=== PATIENT | female | born 1975 | race Caucasian/White ===

== ENCOUNTER 2017-04-24 01:09 | Emergency (ER) | payer OTHER ==
[2017-04-24] MEDS ORDERED: LORazepam 2 MG/ML INJ IM STA (01:34)
--- NOTE | 2017-04-24 01:34 | ED ---
General Adult HPI - General Source: patient, RN notes reviewed Mode of arrival: ambulatory Limitations: no limitations <Johnnie Adamson - Last Filed: 04/24/17 02:55> <Ji Granados - Last Filed: 04/24/17 12:43> - General Chief complaint: Alcohol Stated complaint: Mental Health Time Seen by Provider: 04/24/17 01:15 - History of Present Illness Initial comments: This is a 41-year-old female presents emergency Department intoxicated. Patient states she was doing methamphetamines today and drinking alcohol. Patient states she is suicidal friend states that patient has been having suicidal ideations all day. Patient denies any physical complaints today. Patient denies headache patient denies chest pain patient denies difficulty breathing or shortness of breath. Patient denies abdominal pain. Patient denies any recent injury or trauma. Patient denies taking any pills. Patient denies any heroin use. (Johnnie Adamson) - Related Data Home Medications Medication Instructions Recorded Confirmed No Known Home Medications [No 04/24/17 04/24/17 Known Home Medications] Allergies Allergy/AdvReac Type Severity Reaction Status Date / Time No Known Allergies Allergy Verified 04/24/17 10:31 Review of Systems ROS Other: All systems not noted in ROS Statement are negative. <Johnnie Adamson - Last Filed: 04/24/17 02:55> ROS Other: All systems not noted in ROS Statement are negative. <Ji Granados - Last Filed: 04/24/17 12:43> ROS Statement: Those systems with pertinent positive or pertinent negative responses have been documented in the HPI. Past Medical History Past Medical History: No Reported History History of Any Multi-Drug Resistant Organisms: MRSA Date of last positivie culture/infection: 2011 MDRO Source:: abdomen Past Surgical History: Section Additional Past Surgical History / Comment(s): 4 Past Anesthesia/Blood Transfusion Reactions: No Reported Reaction Past Psychological History: Anxiety, Depression Smoking Status: Current every day smoker Past Alcohol Use History: Daily, Heavy Past Drug Use History: Cocaine, Heroin, IV Drug Use, Marijuana, Methamphetamine , Opiates - Past Family History Father Family Medical History: Diabetes Mellitus, Hypertension Additional Family Medical History / Comment(s): Patient does not know any history on her father. She only states that he is "a piece of shit." Mother Family Medical History: CVA/TIA, Hypertension Additional Family Medical History / Comment(s): Mother has history of CVA Brother(s) Additional Family Medical History / Comment(s): Patient has 4 brothers. She has one sister that has some type of mental health problems. Patient has 4 children ages 22, 18, 17, 15. Patient states that she does not have custody of her children. <Johnnie Adamson - Last Filed: 04/24/17 02:55> General Exam Limitations: no limitations <Johnnie Adamson - Last Filed: 04/24/17 02:55> <Ji Granados - Last Filed: 04/24/17 12:43> - General Exam Comments Initial Comments: GENERAL: Patient is well-developed and well-nourished. Patient is nontoxic and well- hydrated and is in no acute distress.patient appears intoxicated ENT: Neck is soft and supple. No significant lymphadenopathy is noted. Oropharynx is clear. Moist mucous membranes. Neck has full range of motion without eliciting any pain. EYES: The sclera were anicteric and conjunctiva were pink and moist. Extraocular movements were intact and pupils were equal round and reactive to light. Eyelids were unremarkable. PULMONARY: Unlabored respirations. Good breath sounds bilaterally. No audible rales rhonchi or wheezing was noted. CARDIOVASCULAR: There is a regular rate and rhythm without any murmurs gallops or rubs. ABDOMEN: Soft and nontender with normal bowel sounds. SKIN: Skin is clear with no lesions or rashes and otherwise unremarkable. NEUROLOGIC: Patient is alert and oriented x3. Cranial nerves II through XII are grossly intact. Motor and sensory are also intact. Normal speech, volume and content. MUSCULOSKELETAL: Normal extremities with adequate strength and full range of motion. LYMPHATICS: No significant lymphadenopathy is noted PSYCHIATRIC: patient is upset and very tearful and states she is suicidal. (Johnnie Adamson) Vital Signs 04/24/17 04/24/17 04/24/17 01:15 07:19 10:07 Temperature 98.4 F 98 F Pulse Rate 100 78 102 H Respiratory 18 18 20 Rate Blood Pressure 141/81 100/60 O2 Sat by Pulse 97 98 Oximetry Medical Decision Making <Johnnie Adamson - Last Filed: 04/24/17 02:55> <Ji Granados - Last Filed: 04/24/17 12:43> - Medical Decision Making Dr. Aime jackson taking over the care of this patient at 7 AM (Johnnie Adamson) Patient was seen by mental health services who recommends discharge. Patient is set up for follow-up appointment with [facility] in the morning as well as they will contact patient later tonight. Patient reevaluated and denies suicidal ideation. Patient does contract for safety. (Ji Granados) - Lab Data Lab Results 04/24/17 Range/Units 02:00 Urine Opiates Screen Not Detected (NotDetected) Ur Oxycodone Screen Not Detected (NotDetected) Urine Methadone Screen Not Detected (NotDetected) Ur Propoxyphene Screen Not Detected (NotDetected) Ur Barbiturates Screen Not Detected (NotDetected) U Tricyclic Antidepress Not Detected (NotDetected) Ur Phencyclidine Scrn Not Detected (NotDetected) Ur Amphetamines Screen Detected H (NotDetected) U Methamphetamines Scrn Detected H (NotDetected) U Benzodiazepines Scrn Detected H (NotDetected) Urine Cocaine Screen Not Detected (NotDetected) U Marijuana (THC) Screen Detected H (NotDetected) Disposition <Johnnie Adamson - Last Filed: 04/24/17 02:55> Time of Disposition: 12:43 <Ji Granados - Last Filed: 04/24/17 12:43> Clinical Impression: Depression Disposition: HOME SELF-CARE Condition: Stable Instructions: Polysubstance Abuse (ED), Depression (ED), Suicide Prevention for Adults (ED) Additional Instructions: Discontinue alcohol and substance use. Return for increased depression, thoughts of harming your self, worsening symptoms or other concerns. Please follow-up with [facility] as directed. Referrals: Deanna Haskins MD [STAFF PHYSICIAN] - 1-2 days
[2017-04-24 02:21] LABS: Amphetamine Screen,Urine Detected (NotDetected); Barbiturate Screen,Urine Not Detected (NotDetected); Benzodiazepines Screen,Urine Detected (NotDetected); Cocaine Screen,Urine Not Detected (NotDetected); Methadone Screen, Urine Not Detected (NotDetected); Opiate Screen,Urine Not Detected (NotDetected); Oxycodone Screen, Urine Not Detected (NotDetected); Phencyclidine Screen,Urine Not Detected (NotDetected); Tricyclic Antidepressant,Urine Not Detected (NotDetected); Urn Cannabinoid Scrn Detected (NotDetected)
[2017-04-24 13:01] VITALS: BP 115/58; PULSE 62; RESP 18; TEMP 98
== END 2017-04-24 13:01 | disposition home or self-care (01) ==
LOC: EC 01:09
DX: F32.9 Major depressive disorder, single episode, unspecified (principal); F10.129 Alcohol abuse with intoxication, unspecified; R45.851 Suicidal ideations; F17.200 Nicotine dependence, unspecified, uncomplicated; Z86.14 Personal history of Methicillin resistant Staphylococcus aureus infection
CPT/HCPCS: 82075; 80306; 99284; 96372; J2060

== ENCOUNTER 2017-08-20 21:54 | Inpatient (IN) | payer MEDICAID, OTHER ==
[2017-08-20] MEDS ORDERED: SODIUM CHLORIDE 0.9% 1,000 ML IV ONE (22:26)
--- NOTE | 2017-08-20 22:29 | ED ---
General Adult HPI - General Chief complaint: Psychiatric Symptoms Stated complaint: mental health Time Seen by Provider: 08/20/17 21:56 Source: police, EMS, RN notes reviewed Mode of arrival: EMS Limitations: no limitations - History of Present Illness Initial comments: This is a 41-year-old female who comes into the emergency department intoxicated. She also overdosed on heroin and Narcan to bring her around. Patient then woke up and made statements that she was suicidal. Patient has no physical complaints however. Patient denies any headache patient denies chest pain difficulty breathing shortness of breath. Patient denies abdominal pain patient denies nausea vomiting diarrhea. Patient however does state that she is sexually active. Patient also states she has hepatitis C - Related Data Home Medications Medication Instructions Recorded Confirmed No Known Home Medications [No 04/24/17 04/24/17 Known Home Medications] Allergies Allergy/AdvReac Type Severity Reaction Status Date / Time No Known Allergies Allergy Verified 08/20/17 22:11 Review of Systems ROS Statement: Those systems with pertinent positive or pertinent negative responses have been documented in the HPI. ROS Other: All systems not noted in ROS Statement are negative. Past Medical History Past Medical History: No Reported History History of Any Multi-Drug Resistant Organisms: MRSA Date of last positivie culture/infection: 2011 MDRO Source:: abdomen Past Surgical History: Section Additional Past Surgical History / Comment(s): 4 Past Anesthesia/Blood Transfusion Reactions: No Reported Reaction Past Psychological History: Anxiety, Depression Smoking Status: Current every day smoker Past Alcohol Use History: Daily, Heavy Past Drug Use History: Cocaine, Heroin, IV Drug Use, Marijuana, Methamphetamine , Opiates - Past Family History Father Family Medical History: Diabetes Mellitus, Hypertension Additional Family Medical History / Comment(s): Patient does not know any history on her father. She only states that he is "a piece of shit." Mother Family Medical History: CVA/TIA, Hypertension Additional Family Medical History / Comment(s): Mother has history of CVA Brother(s) Additional Family Medical History / Comment(s): Patient has 4 brothers. She has one sister that has some type of mental health problems. Patient has 4 children ages 22, 18, 17, 15. Patient states that she does not have custody of her children. General Exam - General Exam Comments Initial Comments: GENERAL: Patient is well-developed and well-nourished. Patient is nontoxic and well- hydrated and is in no acute distress. ENT: Neck is soft and supple. No significant lymphadenopathy is noted. Oropharynx is clear. Moist mucous membranes. Neck has full range of motion without eliciting any pain. EYES: The sclera were anicteric and conjunctiva were pink and moist. Extraocular movements were intact and pupils were equal round and reactive to light. Eyelids were unremarkable. PULMONARY: Unlabored respirations. Good breath sounds bilaterally. No audible rales rhonchi or wheezing was noted. CARDIOVASCULAR: There is a regular rate and rhythm without any murmurs gallops or rubs. ABDOMEN: Soft and nontender with normal bowel sounds. No palpable organomegaly was noted. There is no palpable pulsatile mass. SKIN: Skin is clear with no lesions or rashes and otherwise unremarkable. NEUROLOGIC: Patient is alert and oriented x3. Cranial nerves II through XII are grossly intact. Motor and sensory are also intact. Normal speech, volume and content. Symmetrical smile. MUSCULOSKELETAL: Normal extremities with adequate strength and full range of motion. No lower extremity swelling or edema. No calf tenderness. LYMPHATICS: No significant lymphadenopathy is noted PSYCHIATRIC: Patient states she suicidal and appears very anxious which could be residual effects from her being given Narcan Limitations: no limitations Course Vital Signs 08/20/17 22:11 Temperature 97.6 F Pulse Rate 76 Respiratory 18 Rate Blood Pressure 126/85 O2 Sat by Pulse 97 Oximetry Medical Decision Making - Lab Data Result diagrams: 08/20/17 22:35 08/20/17 22:35 Lab Results 08/20/17 08/20/17 08/21/17 Range/Units 22:35 22:35 00:31 WBC 7.2 (3.8-10.6) k/uL RBC 4.59 (3.80-5.40) m/uL Hgb 14.2 (11.4-16.0) gm/dL Hct 43.5 (34.0-46.0) % MCV 94.8 (80.0-100.0) fL MCH 31.0 (25.0-35.0) pg MCHC 32.7 (31.0-37.0) g/dL RDW 13.3 (11.5-15.5) % Plt Count 254 (150-450) k/uL Neutrophils % 70 % Lymphocytes % 18 % Monocytes % 6 % Eosinophils % 2 % Basophils % 1 % Neutrophils # 5.1 (1.3-7.7) k/uL Lymphocytes # 1.3 (1.0-4.8) k/uL Monocytes # 0.5 (0-1.0) k/uL Eosinophils # 0.1 (0-0.7) k/uL Basophils # 0.0 (0-0.2) k/uL Sodium 149 H (137-145) mmol/L Potassium 4.1 (3.5-5.1) mmol/L Chloride 112 H (98-107) mmol/L Carbon Dioxide 24 (22-30) mmol/L Anion Gap 13 mmol/L BUN 12 (7-17) mg/dL Creatinine 0.70 (0.52-1.04) mg/dL Est GFR (CKD-EPI)AfAm >90 (>60 ml/min/1.73 sqM) Est GFR (CKD-EPI)NonAf >90 (>60 ml/min/1.73 sqM) Glucose 87 (74-99) mg/dL Calcium 8.6 (8.4-10.2) mg/dL Total Bilirubin 0.1 L (0.2-1.3) mg/dL AST 97 H (14-36) U/L ALT 95 H (9-52) U/L Alkaline Phosphatase 53 (38-126) U/L Total Protein 6.9 (6.3-8.2) g/dL Albumin 3.9 (3.5-5.0) g/dL Lipase 432 H (23-300) U/L Urine HCG, Qual (Not Detectd) Urine Opiates Screen Not Detected (NotDetected) Ur Oxycodone Screen Not Detected (NotDetected) Urine Methadone Screen Not Detected (NotDetected) Ur Propoxyphene Screen Not Detected (NotDetected) Ur Barbiturates Screen Not Detected (NotDetected) U Tricyclic Antidepress Not Detected (NotDetected) Ur Phencyclidine Scrn Not Detected (NotDetected) Ur Amphetamines Screen Detected H (NotDetected) U Methamphetamines Scrn Not Detected (NotDetected) U Benzodiazepines Scrn Not Detected (NotDetected) Urine Cocaine Screen Not Detected (NotDetected) U Marijuana (THC) Screen Detected H (NotDetected) 08/21/17 Range/Units 00:31 WBC (3.8-10.6) k/uL RBC (3.80-5.40) m/uL Hgb (11.4-16.0) gm/dL Hct (34.0-46.0) % MCV (80.0-100.0) fL MCH (25.0-35.0) pg MCHC (31.0-37.0) g/dL RDW (11.5-15.5) % Plt Count (150-450) k/uL Neutrophils % % Lymphocytes % % Monocytes % % Eosinophils % % Basophils % % Neutrophils # (1.3-7.7) k/uL Lymphocytes # (1.0-4.8) k/uL Monocytes # (0-1.0) k/uL Eosinophils # (0-0.7) k/uL Basophils # (0-0.2) k/uL Sodium (137-145) mmol/L Potassium (3.5-5.1) mmol/L Chloride (98-107) mmol/L Carbon Dioxide (22-30) mmol/L Anion Gap mmol/L BUN (7-17) mg/dL Creatinine (0.52-1.04) mg/dL Est GFR (CKD-EPI)AfAm (>60 ml/min/1.73 sqM) Est GFR (CKD-EPI)NonAf (>60 ml/min/1.73 sqM) Glucose (74-99) mg/dL Calcium (8.4-10.2) mg/dL Total Bilirubin (0.2-1.3) mg/dL AST (14-36) U/L ALT (9-52) U/L Alkaline Phosphatase (38-126) U/L Total Protein (6.3-8.2) g/dL Albumin (3.5-5.0) g/dL Lipase (23-300) U/L Urine HCG, Qual Not Detected (Not Detectd) Urine Opiates Screen (NotDetected) Ur Oxycodone Screen (NotDetected) Urine Methadone Screen (NotDetected) Ur Propoxyphene Screen (NotDetected) Ur Barbiturates Screen (NotDetected) U Tricyclic Antidepress (NotDetected) Ur Phencyclidine Scrn (NotDetected) Ur Amphetamines Screen (NotDetected) U Methamphetamines Scrn (NotDetected) U Benzodiazepines Scrn (NotDetected) Urine Cocaine Screen (NotDetected) U Marijuana (THC) Screen (NotDetected) Disposition Clinical Impression: Suicidal ideation, Amphetamine abuse Disposition: ADMITTED IP TO THIS HOSP Referrals: None,Stated [Primary Care Provider] - 1-2 days Time of Disposition: 04:09
[2017-08-20] MEDS ORDERED: RX INFO: IV CONTRAST WAS GIVEN 1 EACH MISC MISCELLANE PRN (22:34)
[2017-08-20 23:05] LABS: Basophils % (A) 1 %; Eosinophils # (A) 0.1 k/uL (0-0.7); Eosinophils % (A) 2 %; HCT 43.5 % (34.0-46.0); HGB 14.2 gm/dL (11.4-16.0); Lymphocytes # (A) 1.3 k/uL (1.0-4.8); Lymphocytes % (A) 18 %; MCHC 32.7 g/dL (31.0-37.0); MCV 94.8 fL (80.0-100.0); Mean Platelet Volume 6.4; Monocytes # (A) 0.5 k/uL (0-1.0); Monocytes % (A) 6 %; Neutrophils # (A) 5.1 k/uL (1.3-7.7); Neutrophils % (A) 70 %; Platelet Count 254 k/uL (150-450); RBC 4.59 m/uL (3.80-5.40); RDW 13.3 % (11.5-15.5); WBC 7.2 k/uL (3.8-10.6)
[2017-08-20 23:17] LABS: ALT 95 U/L (9-52); AST 97 U/L (14-36); Albumin 3.9 g/dL (3.5-5.0); Alkaline Phosphatase 53 U/L (38-126); Anion Gap 13 mmol/L; Blood Urea Nitrogen 12 mg/dL (7-17); Calcium 8.6 mg/dL (8.4-10.2); Carbon Dioxide 24 mmol/L (22-30); Chloride 112 mmol/L (98-107); Glucose 87 mg/dL (74-99); Lipase 432 U/L (23-300); Potassium 4.1 mmol/L (3.5-5.1); Sodium 149 mmol/L (137-145); Total Bilirubin 0.1 mg/dL (0.2-1.3); Total Protein 6.9 g/dL (6.3-8.2)
[2017-08-20] MEDS: ONDANSETRON 4 MG/2 ML VIAL IVP STA (23:32)
[2017-08-21 00:57] LABS: Amphetamine Screen,Urine Detected (NotDetected); Barbiturate Screen,Urine Not Detected (NotDetected); Benzodiazepines Screen,Urine Not Detected (NotDetected); Cocaine Screen,Urine Not Detected (NotDetected); Methadone Screen, Urine Not Detected (NotDetected); Opiate Screen,Urine Not Detected (NotDetected); Oxycodone Screen, Urine Not Detected (NotDetected); Phencyclidine Screen,Urine Not Detected (NotDetected); Tricyclic Antidepressant,Urine Not Detected (NotDetected); Urn Cannabinoid Scrn Detected (NotDetected)
[2017-08-21] MEDS ORDERED: LORazepam 2 MG/ML INJ IV STA (02:47)
[2017-08-21] MEDS: ONDANSETRON 4 MG/2 ML VIAL IVP STA (02:53)
[2017-08-21] MEDS ORDERED: MAGNESIUM HYDROXIDE 2,400 MG/10 ML CUP PO PRN (04:22)
[2017-08-21] MEDS ORDERED: MAG HYDROX/AL HYDROX/SIMETH 30 ML CUP PO PRN (04:22)
[2017-08-21] MEDS ORDERED: ACETAMINOPHEN TAB 325 MG TAB PO PRN (04:22)
--- NOTE | 2017-08-21 06:40 | P.MDCNMH ---
History of Present Illness H&P Date: 08/21/17 Chief Complaint: Suicidal thoughts 41-year-old female who comes into the emergency department intoxicated. She also overdosed on heroin and Narcan was used in the ER to bring her around. Patient then woke up and made statements that she did not care if her life ended with an overdose. She has been having those suicidal thoughts all her life but more frequently lately. She admitted increasing symptoms of depression and anxiety lately. Patient has no physical complaints however. Patient denies any headache, denies chest pain or shortness of breath. Patient denies abdominal pain, nausea, vomiting or diarrhea. She hasn't been to a doctor for along time. Stopped taking her psycoactive meds about 4-6 months ago. She doesn' t recall which medicines she was taking. Review of Systems 12 point ROS performed, negative except HPI Past Medical History Past Medical History: No Reported History Additional Past Medical History / Comment(s): Hep C History of Any Multi-Drug Resistant Organisms: MRSA Date of last positivie culture/infection: 2011 MDRO Source:: abdomen Past Surgical History: Section Additional Past Surgical History / Comment(s): 4 Past Anesthesia/Blood Transfusion Reactions: No Reported Reaction Past Psychological History: Anxiety, Depression Smoking Status: Current every day smoker Past Alcohol Use History: Daily, Heavy Past Drug Use History: Cocaine, Heroin, IV Drug Use, Marijuana, Methamphetamine , Opiates - Past Family History Father Family Medical History: Diabetes Mellitus, Hypertension Additional Family Medical History / Comment(s): Patient does not know any history on her father. She only states that he is "a piece of shit." Mother Family Medical History: CVA/TIA, Hypertension Additional Family Medical History / Comment(s): Mother has history of CVA Brother(s) Additional Family Medical History / Comment(s): Patient has 4 brothers. She has one sister that has some type of mental health problems. Patient has 4 children ages 22, 18, 17, 15. Patient states that she does not have custody of her children. Medications and Allergies Home Medications Medication Instructions Recorded Confirmed Type No Known Home Medications [No 04/24/17 04/24/17 History Known Home Medications] Allergies Allergy/AdvReac Type Severity Reaction Status Date / Time No Known Allergies Allergy Verified 08/20/17 22:11 Physical Exam Vitals: Vital Signs Temp Pulse Pulse Resp BP BP Pulse Ox 08/21/17 05:10 97.2 F L 86 16 99/57 94 L 08/21/17 04:30 97.9 F 82 16 110/69 97 08/20/17 22:11 97.6 F 76 18 126/85 97 Intake and Output 08/20/17 08/20/17 08/21/17 14:59 22:59 06:59 Other: Weight 68.039 kg Constitutional: No acute distress, conversant, pleasant Eyes:Anicteric sclerae, moist conjunctiva, no lid-lag, PERRLA, ENMT: Oropharynx clear, no erythema, exudates Neck: Supple, FROM, no masses, or JVD, No carotid bruits, No thyromegaly Lungs: Clear to auscultation, Clear to percussion, Normal respiratory effort, no accessory muscle use Cardiovascular: Heart regular in rate and rhythm, No murmurs, gallops, or rubs, No peripheral edema Abdominal: Soft, Nontender, no guarding, rebound or rigidity, Normoactive bowel sounds, No hepatomegaly, No splenomegaly, No palpable mass Skin: Normal temperature, tone, texture, turgor, no induration, No subcutaneous nodules, No rash, lesions, No ulcers Extremities: No digital cyanosis, No clubbing, Pedal pulses intact and symmetrical, Radial pulses intact and symmetrical, No calf tenderness Psychiatric: Alert and oriented to person, place and time, appropriate affect, intact judgement Neuro: Muscles Strength 5/5 in all 4 extremities, Sensation to light touch grossly present throughout, Cranial nerves II-XII grossly intact, no focal sensory deficits Cranial Nerve Examination - Cranial Nerves Cranial Nerve II- Optic: Intact Cranial Nerve III- Oculomotor: Intact Cranial Nerve IV- Trochlear: Intact Cranial Nerve V- Trigeminal: Intact Cranial Nerve - Abducens: Intact Cranial Nerve VII- Facial: Intact Cranial Nerve VIII- Auditory: Intact Cranial Nerve IX- Glossopharyngeal: Intact Cranial Nerve X- Vagus: Intact Cranial Nerve XI- Accessory: Intact Cranial Nerve XII- Hypoglossal: Intact Results CBC & Chem 7: 08/20/17 22:35 08/20/17 22:35 Labs: Abnormal Lab Results - Last 24 Hours (Table) 08/20/17 08/21/17 Range/Units 22:35 00:31 Sodium 149 H (137-145) mmol/L Chloride 112 H (98-107) mmol/L Total Bilirubin 0.1 L (0.2-1.3) mg/dL AST 97 H (14-36) U/L ALT 95 H (9-52) U/L Lipase 432 H (23-300) U/L Ur Amphetamines Screen Detected H (NotDetected) U Marijuana (THC) Screen Detected H (NotDetected) Assessment and Plan Plan: #1 Suicidal thoughts/depression and anxiety: Per psychiatry management #2 Alcohol abuse: CIWA protocal Adviced to quit #3 Smoking: Nicotine patch Adviced to quit #4 Drug use: Adviced to quit #5 Health maintenance: Check CBC, CMP, Mg, Phos, TSH
[2017-08-21] MEDS: LORazepam 1 MG TAB PO PRN ×2 (08:46→18:30)
[2017-08-21] MEDS: NICOTINE 21MG/24HR PATCH TRANSDERM SCH (08:46)
--- NOTE | 2017-08-21 09:01 | P.HP ---
Psychiatric H&P - . H&P Date: 08/21/17 History & Physical: Allergies Allergy/AdvReac Type Severity Reaction Status Date / Time No Known Allergies Allergy Verified 08/20/17 22:11 Vital Signs Temp 97.2 F L 08/21/17 05:10 Pulse 86 08/21/17 05:10 Resp 16 08/21/17 05:10 BP 99/57 08/21/17 05:10 Pulse Ox 94 L 08/21/17 05:10 Intake & Output 08/20/17 08/21/17 08/21/17 18:59 06:59 18:59 Weight 68.039 kg Laboratory Last Values WBC 7.2 k/uL (3.8-10.6) 08/20/17 22:35 RBC 4.59 m/uL (3.80-5.40) 08/20/17 22:35 Hgb 14.2 gm/dL (11.4-16.0) 08/20/17 22:35 Hct 43.5 % (34.0-46.0) 08/20/17 22:35 MCV 94.8 fL (80.0-100.0) 08/20/17 22:35 MCH 31.0 pg (25.0-35.0) 08/20/17 22:35 MCHC 32.7 g/dL (31.0-37.0) 08/20/17 22:35 RDW 13.3 % (11.5-15.5) 08/20/17 22:35 Plt Count 254 k/uL (150-450) 08/20/17 22:35 Neutrophils % 70 % 08/20/17 22:35 Lymphocytes % 18 % 08/20/17 22:35 Monocytes % 6 % 08/20/17 22:35 Eosinophils % 2 % 08/20/17 22:35 Basophils % 1 % 08/20/17 22:35 Neutrophils # 5.1 k/uL (1.3-7.7) 08/20/17 22:35 Lymphocytes # 1.3 k/uL (1.0-4.8) 08/20/17 22:35 Monocytes # 0.5 k/uL (0-1.0) 08/20/17 22:35 Eosinophils # 0.1 k/uL (0-0.7) 08/20/17 22:35 Basophils # 0.0 k/uL (0-0.2) 08/20/17 22:35 Sodium 149 mmol/L (137-145) H 08/20/17 22:35 Potassium 4.1 mmol/L (3.5-5.1) 08/20/17 22:35 Chloride 112 mmol/L (98-107) H 08/20/17 22:35 Carbon Dioxide 24 mmol/L (22-30) 08/20/17 22:35 Anion Gap 13 mmol/L 08/20/17 22:35 BUN 12 mg/dL (7-17) 08/20/17 22:35 Creatinine 0.70 mg/dL (0.52-1.04) 08/20/17 22:35 Est GFR (CKD-EPI)AfAm >90 (>60 ml/min/1.73 sqM) 08/20/17 22:35 Est GFR (CKD-EPI)NonAf >90 (>60 ml/min/1.73 sqM) 08/20/17 22:35 Glucose 87 mg/dL (74-99) 08/20/17 22:35 Calcium 8.6 mg/dL (8.4-10.2) 08/20/17 22:35 Total Bilirubin 0.1 mg/dL (0.2-1.3) L 08/20/17 22:35 AST 97 U/L (14-36) H 08/20/17 22:35 ALT 95 U/L (9-52) H 08/20/17 22:35 Alkaline Phosphatase 53 U/L (38-126) 08/20/17 22:35 Total Protein 6.9 g/dL (6.3-8.2) 08/20/17 22:35 Albumin 3.9 g/dL (3.5-5.0) 08/20/17 22:35 Lipase 432 U/L (23-300) H 08/20/17 22:35 Urine HCG, Qual Not Detected (Not Detectd) 08/21/17 00:31 Urine Opiates Screen Not Detected (NotDetected) 08/21/17 00:31 Ur Oxycodone Screen Not Detected (NotDetected) 08/21/17 00:31 Urine Methadone Screen Not Detected (NotDetected) 08/21/17 00:31 Ur Propoxyphene Screen Not Detected (NotDetected) 08/21/17 00:31 Ur Barbiturates Screen Not Detected (NotDetected) 08/21/17 00:31 U Tricyclic Antidepress Not Detected (NotDetected) 08/21/17 00:31 Ur Phencyclidine Scrn Not Detected (NotDetected) 08/21/17 00:31 Ur Amphetamines Screen Detected (NotDetected) H 08/21/17 00:31 U Methamphetamines Scrn Not Detected (NotDetected) 08/21/17 00:31 U Benzodiazepines Scrn Not Detected (NotDetected) 08/21/17 00:31 Urine Cocaine Screen Not Detected (NotDetected) 08/21/17 00:31 U Marijuana (THC) Screen Detected (NotDetected) H 08/21/17 00:31 08/21/17 08:45 Defecation: Cindy Solomon is a 41 years old single white female living in [facility]. She was readmitted to [facility] on 08/20 under a petition stating that she had overdosed in a suicide attempt. History of present illness: said she had overdosed by snorting cocaine to kill herself. She lives with some friends and she does not know how she came to the ER. She said she has been depressed for several years and it has been worse for the last about 4 months and she stopped going to [facility]. She said she has suicidal thoughts for 1 week and still has suicidal thoughts. She denies manic episodes and she actually does not even understand what wendie is. She said her depression lasts depending on the situation up to a month or so and she cannot tell me the duration of the shortest depressive episode. She denies hallucinations and delusional thinking. Patient does not appear to be a court reliable historian. Previous psychiatric history/drug and alcohol abuse: She said she was in psychiatric hospitals 3-4 times in the past she was going to [facility] until about 4 months ago. She does not remember what medicines she was on except to say that she was on 7 different kinds of medications. She could not tell me which medication had helped her. Eventually at the end of the interview she said she had taken Seroquel and it had helped her to sleep better and for mood stabilization. She said she started to drink alcohol at the age of 13. She said she drinks on a daily basis 6-10 beers a day. She had blackouts and one DUI. 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 She was in the rehab once. She said she had abused heroin about 10 times in all her life. She said she had done all kinds of drugs in the past and she does not do any drugs on a regular basis. Her ER note indicates she was intoxicated and had to be given Narcan to "bring her down". However her drug screening was negative for opiates and was positive for amphetamines and cannabis. I'm not able to locate the results of blood alcohol level in the chart. Her past medical diagnoses include major depression, bipolar disorder, alcohol use disorder and polysubstance use disorder. Previous medical history: She is not ALLERGIC to any medication. She does not have any major physical problems. Her menstrual periods are irregular and the last one was 2 months ago. She has 4 children age 17-24 from 4 different men. She did not have any . She had 3 C-sections. She has multiple tattoos. She has several rings on her fingers and thumb. Her AST and ALT are elevated along with lipase. Social history: She quit the school in ninth grade since she got . She had learning problems and was in special education. She had repeated kindergarten and first grade. She said she did not have any discipline issues when she was growing up. She said she did not play any sports or games. She was raised well by her mother. She was born out of wedlock. Currently she lives with her friends. She has not been working for the last about 20 years. She said she depends on her friends. She has Medicaid and food stamps. She was not in the service. She does not have any faith and does not believe in God. She denies any pending legal issues. Family history she denies any history of psychiatric or general medical problems in the family. Mental status examination: This is a white ambulatory female with adequate hygiene. She has long well maintained and colored hair. She is mildly tremulous and did not make any eye contact during the examination. She often and reported that she does not remember or does not know too many questions. Otherwise her speech is spontaneous and goal-directed. Her mood is anxious and affect is increased in intensity. She denies hallucinations and delusional thinking. She continues to report that she is suicidal but she said she will not do anything to hurt herself while in the hospital. She denies homicidal thoughts. She is well oriented. She is able to recall 2 out of 3 items after 5 minutes. She names the last 2 presidents when she was asked to name the last 4. She is able to spell house forwards but refused to spell it backwards. She is able to say 8+7 is 15 and she said she cannot multiply 87. Her insight appears to be fair to poor and judgment is impaired as evidenced by continued substance abuse, not having a job and depending on her friends for her survival including substance and alcohol abuse. Diagnostic impression: Probable unspecified depressive disorder F 32.9 versus unspecified bipolar and related disorder F 31.9. Alcohol use disorder severe F 10.20. 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 Cannabis use disorder moderate F 12.20. NKDA. Elevated liver enzymes. Possible pancreatitis. Treatment plan: She already had her physical examination. She will have psychosocial evaluation. She will receive milieu therapy group therapy individual therapy occupational therapy recreational therapy and medication education. She'll be supervised regarding suicide behavior. She will be detox from alcohol according to the protocol. She agreed to try Seroquel 100 mg at bedtime for "mood stabilization". Refer to rehab if she is willing. Treatment goals: Her mood will be stable. She will be free of suicide thoughts. She will be detoxed according to the protocol. She will learn better coping skills.
[2017-08-21] MEDS: FOLIC ACID 1 MG TAB PO SCH (13:26)
[2017-08-21] MEDS: MULTIVITAMINS, THERA 1 EACH TAB PO SCH (13:26)
[2017-08-21] MEDS: THIAMINE 100 MG TAB PO SCH (13:27)
[2017-08-21] MEDS ORDERED: QUEtiapine 100 MG TAB PO SCH (21:00)
[2017-08-22] MEDS: LORazepam 1 MG TAB PO PRN ×3 (08:17→20:54)
[2017-08-22] MEDS: NICOTINE 21MG/24HR PATCH TRANSDERM SCH (09:47)
[2017-08-22] MEDS: IBUPROFEN 400 MG TAB PO PRN ×2 (09:50→20:54)
--- NOTE | 2017-08-22 10:11 | P.PN ---
Progress Note - Text Progress Note Date: 08/22/17 Patient was seen for a follow-up examination. She is withdrawing and has some hand tremors. She received Ativan earlier this morning. She said she slept okay but it was not long enough on Seroquel 100 mg at bedtime. She does not have any adverse effects and agreed to increase the dose. Today she is not feeling suicidal. This is a white ambulatory female with adequate hygiene. She is polite and cooperative. She does not show any psychomotor agitation or retardation. But she is tremulous. Her speech is spontaneous relevant and goal-directed. Her mood is mildly anxious and affect is appropriate. She denies suicidal thoughts today. She denies homicidal thoughts. She denies hallucinations and delusional thinking. She is well oriented with adequate memory concentration etc. Plan: Increase Ativan 1 mg every 6 hours when necessary for withdrawal symptoms. Increase Seroquel to 150 mg at bedtime. Continue groups and other therapies.
[2017-08-22] MEDS: THIAMINE 100 MG TAB PO SCH (11:09)
[2017-08-22] MEDS: MULTIVITAMINS, THERA 1 EACH TAB PO SCH (11:09)
[2017-08-22] MEDS: FOLIC ACID 1 MG TAB PO SCH (11:09)
[2017-08-22 12:42] LABS: ALT 90 U/L (9-52); AST 77 U/L (14-36); Albumin 3.7 g/dL (3.5-5.0); Alkaline Phosphatase 66 U/L (38-126); Anion Gap 8 mmol/L; Blood Urea Nitrogen 12 mg/dL (7-17); Calcium 9.7 mg/dL (8.4-10.2); Carbon Dioxide 30 mmol/L (22-30); Chloride 103 mmol/L (98-107); Glucose 116 mg/dL (74-99); Potassium 4.6 mmol/L (3.5-5.1); Sodium 141 mmol/L (137-145); Total Bilirubin 0.4 mg/dL (0.2-1.3); Total Protein 6.7 g/dL (6.3-8.2)
[2017-08-22] MEDS ORDERED: QUEtiapine 100 MG TAB PO SCH (21:00)
[2017-08-23] MEDS: NICOTINE 21MG/24HR PATCH TRANSDERM SCH (08:09)
[2017-08-23] MEDS: IBUPROFEN 400 MG TAB PO PRN ×2 (08:11→14:12)
[2017-08-23] MEDS: LORazepam 1 MG TAB PO PRN ×2 (08:11→14:13)
--- NOTE | 2017-08-23 09:58 | P.PN ---
Progress Note - Text Progress Note Date: 08/23/17 Patient was seen for a follow-up examination. Her withdrawal symptoms are getting better along with her mood and feelings. She still has some hand tremors. She slept well last night. She said she [place] staying [place] and they don't drink at all. She asked if she can have anything for anxiety. She was counseled and it was agreed to increase her Seroquel to 200 mg at bedtime. This is a white ambulatory female with good hygiene. She does not show any psychomotor agitation or retardation. Her speech is spontaneous relevant and goal-directed. Her mood is euthymic and affect is appropriate. She denies hallucinations delusional thinking, suicidal and homicidal ideas. She is well oriented with good memory concentration general knowledge etc. Plan: Increase Seroquel to 200 mg at bedtime, continue detox, groups and other therapies.
[2017-08-23] MEDS: FOLIC ACID 1 MG TAB PO SCH (11:00)
[2017-08-23] MEDS: THIAMINE 100 MG TAB PO SCH (11:00)
[2017-08-23] MEDS: MULTIVITAMINS, THERA 1 EACH TAB PO SCH (11:00)
[2017-08-23] MEDS ORDERED: QUEtiapine 200 MG TAB PO SCH (21:00)
[2017-08-24 06:59] VITALS: BP 111/55; PULSE 65; RESP 16; TEMP 98.1
[2017-08-24] MEDS: NICOTINE 21MG/24HR PATCH TRANSDERM SCH (08:18)
--- NOTE | 2017-08-24 08:20 | P.DS ---
Providers Date of admission: 08/21/17 04:15 Expected date of discharge: 08/24/17 Attending physician: Tory Jaimes Consults: 08/21/17 04:22 Consult Physician Routine Consulting Provider: [facility] Consult Reason/Comments: H & P medical management Do you want consulting provider notified?: Yes Primary care physician: Stated None Hospital Course: Patient had her psychiatric evaluation, physical examination and psychosocial evaluation. After psychiatric evaluation and was agreed to start her on Seroquel 100 mg at bedtime for mood stabilization. She was detoxed according to the protocol with Ativan and also got vitamins. She did not have any adverse effects from Seroquel and it was gradually increased up to 200 mg at bedtime. She attended groups, socialized with peers and interacted with staff she continued to feel better and became free of withdrawal symptoms and suicidal thoughts. She also agreed to comply with outpatient treatment. In view of all these it was agreed to discharge her. Condition on discharge: This is a white ambulatory female with good hygiene. She does not show any psychomotor agitation or retardation. Her speech is spontaneous relevant and goal-directed. Her mood is cheerful and affect is appropriate. She denies hallucinations, delusional thinking, suicidal and homicidal thoughts. Her insight and judgment have improved. 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 Alcohol use disorder severe F 10.20. 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 Cannabis use disorder moderate F 12.20. NKDA. Elevated liver enzymes. Possible pancreatitis. 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 Patient Condition at Discharge: Good Plan - Discharge Summary New Discharge Prescriptions: New Ibuprofen [Motrin] 400 mg PO Q6HR PRN tab PRN Reason: Pain Mag Hydrox/Al Hydrox/Simeth [Maalox] 30 ml PO Q4HR PRN cup PRN Reason: GI Upset Multivitamins, Thera [Multivitamin (formulary)] 1 each PO DAILY@1200 tab QUEtiapine [SEROquel] 200 mg PO HS 30 Days #30 tab Discharge Medication List Ibuprofen [Motrin] 400 mg PO Q6HR PRN tab 08/24/17 [Rx] Mag Hydrox/Al Hydrox/Simeth [Maalox] 30 ml PO Q4HR PRN cup 08/24/17 [Rx] Multivitamins, Thera [Multivitamin (formulary)] 1 each PO DAILY@1200 tab [Rx] QUEtiapine [SEROquel] 200 mg PO HS 30 Days #30 tab 08/24/17 [Rx] Follow up Appointment(s)/Referral(s): None,Stated [Primary Care Provider] - 1-2 days
== END 2017-08-24 12:25 | disposition home or self-care (01) | DRG 883 ==
LOC: EC 21:54 → 3MHU 08-21 04:15
PROVIDERS: ADMIT Psychiatry & Neurology Psychiatry; ATTEND Psychiatry & Neurology Psychiatry
DX: F60.9 Personality disorder, unspecified (principal); K85.90 Acute pancreatitis without necrosis or infection, unspecified; R45.851 Suicidal ideations; F15.23 Other stimulant dependence with withdrawal; F10.239 Alcohol dependence with withdrawal, unspecified; F12.20 Cannabis dependence, uncomplicated; B19.20 Unspecified viral hepatitis C without hepatic coma; F17.200 Nicotine dependence, unspecified, uncomplicated; F31.9 Bipolar disorder, unspecified; Z91.5 Personal history of self-harm; Z82.49 Family history of ischemic heart disease and other diseases of the circulatory system; Z83.3 Family history of diabetes mellitus; Z86.14 Personal history of Methicillin resistant Staphylococcus aureus infection; F10.229 Alcohol dependence with intoxication, unspecified
CPT/HCPCS: 36415; 80053; 80306; 81025; 82075; 83690; 85025; 96361; 96374; 96375; 99285

== ENCOUNTER → 2019-04-10 | Outpatient (CLI) | payer OTHER ==
--- NOTE | 2019-04-10 13:20 | XR ---
EXAM TYPE: LUMBAR SPINE X RAY SERIES COMPARISON: NONE HISTORY: Low back pain TECHNIQUE: 4 views are submitted. FINDINGS: Alignment is anatomic. The pedicles are intact. The transverse processes are intact. 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 Facet arthropathy at levels L4-S1 noted. IMPRESSION: 1. 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 Multitrauma also the differential diagnosis. Recommend follow-up MRI. 2. Lower lumbar spine facet arthropathy.
--- NOTE | 2019-04-10 13:21 | XR ---
EXAMINATION TYPE: XR thoracic spine complete DATE OF EXAM: 04/10/2019 COMPARISON: NONE HISTORY: Pain Alignment is anatomic. There is no compression deformities. Curvature the spine with multilevel dege nerative disc disease and hypertrophic changes. IMPRESSION: 1. Multilevel degenerative disc disease and hypertrophic spurring.
== END | disposition home or self-care (01) ==
LOC: RADXRMAIN 12:54
PROVIDERS: ATTEND Internal Medicine
DX: M46.96 Unspecified inflammatory spondylopathy, lumbar region (principal); M43.8X6 Other specified deforming dorsopathies, lumbar region; M51.34 Other intervertebral disc degeneration, thoracic region
CPT/HCPCS: 72072; 72110

== ENCOUNTER → 2019-04-13 | Outpatient (CLI) | payer OTHER | END | disposition home or self-care (01) | LOC: LABWHC1 10:44 | PROVIDERS: ATTEND Psychiatry & Neurology Psychiatry | DX: Z51.81 Encounter for therapeutic drug level monitoring (principal); Z79.899 Other long term (current) drug therapy | CPT/HCPCS: 36415; 80164 ==